=== PATIENT | female | born 1980 | race Caucasian/White ===

== ENCOUNTER 2024-07-10 07:15 | Outpatient (CLI) | payer MEDICAID, SELFPAY ==
[2024-07-10 08:10] VITALS: BP 139/82; PULSE 112; RESP 16; TEMP 36.6; O2SAT 97
[2024-07-10 08:16] VITALS: BMI 46.3
== END 2024-07-10 08:40 | disposition home or self-care (01) ==
LOC: WPOUT 07:27 → WP 07:43
PROVIDERS: Referring Provider Advanced Practice Midwife; Visit Provider Advanced Practice Midwife
DX: Z34.90 Encounter for supervision of normal pregnancy, unspecified, unspecified trimester (principal); Z3A.00 Weeks of gestation of pregnancy not specified
CPT/HCPCS: 59025; 59050 ×2; G0378 ×2; 99221

== ENCOUNTER 2024-07-12 07:25 | Inpatient (IN) | payer MEDICAID, SELFPAY ==
[2024-07-12] VITALS (85 sets, daily range): BP systolic 84–168; BP diastolic 50–101; PULSE 75–127; RESP 14–18; TEMP 36.1–36.9; O2SAT 82–100; BMI 46.3
[2024-07-12] MEDS: Lactated Ringers 1,000 ML 50 ML IV (08:00)
[2024-07-12 08:15] LABS: Hematocrit 34.2 % (37-47); Hemoglobin 11.5 g/dL (12.0-15.0); Mean Corp Hgb Conc 33.6 g/dL (32-36); Mean Corpuscular Volume 86.1 fL (81-99); Platelet Count 292 K/mm3 (150-450); RBC Distribution Width CV 14.6 % (11.6-14.6); RBC Distribution Width SD 45.3 fl (35.1-43.9); Red Blood Count 3.97 M/mm3 (4.2-5.4); White Blood Count 7.7 K/mm3 (4.4-11.0)
[2024-07-12 08:46] LABS: AST(SGOT) 9 U/L (15-37); Alanine Aminotransfer ALT/SGPT 9 U/L (13-56); Creatinine, Serum 0.72 mg/dL (0.55-1.02); EST Glomerular Filtration Rate 95 mL/min (>60); Est Glom Filt Rate - Afr Amer 115 mL/min (>60); Estimated Creatinine Clearance 147.25 ml/min; Uric Acid 5.8 mg/dL (2.6-6.0)
[2024-07-12 09:02] LABS: Syphilis Antibodies Non-reactive
--- NOTE | 2024-07-12 09:22 | PCM.HP.OB ---
HPI - General General Date of Admission: 07/12/24 HPI Narrative RUSTY IRVIN, is a 43 F who presents 0 1 10 39w5d with MORIAH:07/14/24. Presents for medically indicated induction of labor due to obesity, polyhydramnios, and AMA. Maternal Data Information MORIAH Calculator Estimated Delivery Date Method Current WG Current Estimate 07/14/24 Manual 39w 5d PFSH PFSH Medical History (Updated 07/12/24 @ 10:26 by Elidia Taylor CNM) Polyhydramnios macrosomia Home Medications ?Medication ?Instructions ?Recorded ?Last Taken ?Type aspirin 81 mg capsule 81 mg PO DAILY AMA 07/10/24 07/09/24 History vit no.95-ferrous 1 tab PO DAILY 07/10/24 07/09/24 History fumarate 28 mg-folic acid 800 mcg tablet () Allergy/AdvReac Type Severity Reaction Status Date / Time No Known Allergies Allergy Verified 07/12/24 08:17 Social History Smoking Status: Never smoker History Elective abortions Hx Para 10 Spontaneous abortions Hx # Term Pregnancies Ectopic pregnancies Hx # Pregnancies Multiple births # of living children NST FHR Rate Baby A Baseline: 145 Variability:: Moderate Accelerations:: 15 x 15 Decelerations:: Variable FHR Category:: Category I and Category II Uterine Activity:: Irregular, mild ROS Constitutional Constitutional: Reports systems reviewed and no addt'l complaints, except as documented; Denies headache(s) Eyes Eyes: Denies acute decrease in peripheral vision, blurry vision or change in vision ENT HEENT: Reports systems reviewed and no addt'l complaints, except as documented Cardiovascular Cardiovascular: Denies chest pain or dizziness Respiratory/Chest Respiratory/Chest: Denies cough, dyspnea, dyspnea on exertion, shortness of breath at rest or shortness of breath with exertion Gastrointestinal Gastrointestinal: Denies abdominal pain, diarrhea, nausea or vomiting Genitourinary Genitourinary: Denies abdominal discomfort Musculoskeletal Musculoskeletal: Denies limited range of motion Integumentary Integumentary: Reports systems reviewed and no addt'l complaints, except as documented Neurologic Neurologic: Reports systems reviewed and no addt'l complaints, except as documented Psychiatric Psychiatric: Reports systems reviewed and no addt'l complaints, except as documented Endocrine Endocrinology: Reports systems reviewed and no addt'l complaints, except as documented Hematologic/Lymphatic Hematologic/Lymphatic: Reports systems reviewed and no addt'l complaints, except as documented Allergic/Immunologic Allergic/Immunologic: Reports systems reviewed and no addt'l complaints, except as documented Vital Signs Vital Signs Vital Signs: 07/12/24 07:47 07/12/24 07:47 07/12/24 07:47 Temperature Temperature Source Temporal Pulse Rate Respiratory Rate 17 Blood Pressure BP Systolic BP Diastolic Pulse Ox 98 07/12/24 07:47 07/12/24 07:48 07/12/24 07:48 Temperature 97.2 F L Temperature Source Pulse Rate 117 H Respiratory Rate Blood Pressure 168/101 H BP Systolic 168 BP Diastolic 101 Pulse Ox 07/12/24 07:50 07/12/24 07:50 07/12/24 07:50 Temperature Temperature Source Pulse Rate 120 H 125 H Respiratory Rate Blood Pressure 165/79 H BP Systolic 165 BP Diastolic 79 Pulse Ox 07/12/24 07:50 07/12/24 07:51 07/12/24 07:51 Temperature Temperature Source Pulse Rate 120 H Respiratory Rate Blood Pressure 161/71 H BP Systolic 161 BP Diastolic 71 Pulse Ox 97 07/12/24 07:55 07/12/24 07:55 07/12/24 07:57 Temperature Temperature Source Pulse Rate 122 H 127 H Respiratory Rate Blood Pressure BP Systolic BP Diastolic Pulse Ox 99 07/12/24 07:57 07/12/24 08:00 07/12/24 08:00 Temperature Temperature Source Pulse Rate 121 H Respiratory Rate Blood Pressure BP Systolic BP Diastolic Pulse Ox 82 99 07/12/24 08:04 07/12/24 08:04 07/12/24 08:05 Temperature Temperature Source Pulse Rate 118 H 118 H Respiratory Rate Blood Pressure BP Systolic BP Diastolic Pulse Ox 93 07/12/24 08:05 07/12/24 08:07 07/12/24 08:07 Temperature Temperature Source Pulse Rate 114 H Respiratory Rate Blood Pressure 157/73 H BP Systolic 157 BP Diastolic 73 Pulse Ox 93 07/12/24 08:07 07/12/24 08:07 07/12/24 08:07 Temperature 98.5 F Temperature Source Temporal Pulse Rate Respiratory Rate 18 Blood Pressure BP Systolic BP Diastolic Pulse Ox 07/12/24 08:10 07/12/24 08:10 07/12/24 08:15 Temperature Temperature Source Pulse Rate 115 H 119 H Respiratory Rate Blood Pressure BP Systolic BP Diastolic Pulse Ox 93 07/12/24 08:15 07/12/24 08:20 07/12/24 08:20 Temperature Temperature Source Pulse Rate 120 H Respiratory Rate Blood Pressure BP Systolic BP Diastolic Pulse Ox 99 98 07/12/24 08:22 07/12/24 08:22 07/12/24 08:25 Temperature Temperature Source Pulse Rate 114 H 121 H Respiratory Rate Blood Pressure 138/78 H BP Systolic 138 BP Diastolic 78 Pulse Ox 07/12/24 08:25 07/12/24 08:30 07/12/24 08:30 Temperature Temperature Source Pulse Rate 112 H Respiratory Rate Blood Pressure BP Systolic BP Diastolic Pulse Ox 99 98 07/12/24 08:35 07/12/24 08:35 07/12/24 08:37 Temperature Temperature Source Pulse Rate 102 H Respiratory Rate Blood Pressure 151/75 H BP Systolic 151 BP Diastolic 75 Pulse Ox 100 07/12/24 08:37 07/12/24 08:40 07/12/24 08:40 Temperature Temperature Source Pulse Rate 101 H 112 H Respiratory Rate Blood Pressure BP Systolic BP Diastolic Pulse Ox 99 07/12/24 08:45 07/12/24 08:45 07/12/24 08:50 Temperature Temperature Source Pulse Rate 100 103 H Respiratory Rate Blood Pressure BP Systolic BP Diastolic Pulse Ox 99 07/12/24 08:50 07/12/24 08:52 07/12/24 08:52 Temperature Temperature Source Pulse Rate 103 H Respiratory Rate Blood Pressure BP Systolic BP Diastolic Pulse Ox 100 85 07/12/24 08:53 07/12/24 08:53 07/12/24 09:07 Temperature Temperature Source Pulse Rate 100 Respiratory Rate Blood Pressure 158/91 H 148/82 H BP Systolic 158 148 BP Diastolic 91 82 Pulse Ox 07/12/24 09:07 Temperature Temperature Source Pulse Rate 99 Respiratory Rate Blood Pressure BP Systolic BP Diastolic Pulse Ox Weight Weight: 296 lb 4 oz Body Mass Index (BMI) 46.3 Physical Exam Const alert and oriented x3 General Appearance: cooperative Orientation / Consciousness: awake, oriented to person, oriented to place and oriented to time Exam Limitations: no limitations HEENT normocephalic Head and Scalp: normal to inspection, normocephalic and atraumatic Face and Sinus: normal facial exam Eyes General Eye: normal appearance of both eyes Neck full ROM Chest Chest: symmetrical chest wall rise Resp normal respiratory effort and normal air movement Auscultation: clear to auscultation bilaterally Cardio regular rate, regular rhythm, S1 normal heart sound, S2 normal heart sound, no murmurs, no rub, no gallops and no clicks GI normal to inspection, nondistended, normoactive bowel sounds and non-tender appearance of the vagina normal Bladder / Kidney Exam: no CVA tenderness Manual OB Exam: estimated gestational size appropriate, presentation cephalic, dilated 5, effaced 60, station -2 and other AROM large amount of clear fluid Back/Spine normal ROM Extremity normal to inspection and full ROM Skin no rashes or lesions noted Neuro oriented x3, CN's II-XII intact bilaterally and moves all extremities Sensorium / Orientation: awake, alert and oriented to person Motor Exam: clonus absent Deep Tendon Reflexes: Rt Patellar (L4): 2+ and Lt Patellar (L4): 2+ Labs Labs Labs: Blood Type O NEGATIVE Antibody Screen NEGATIVE Hct 34.2 % (37-47) L Hgb 11.5 g/dL (12.0-15.0) L Syphilis Total Ab Non-reactive RPR nonreactive Rubella Positive HBsAG Negative HepC Negative HIV non reactive GC/CT negative O Negative 08/22/24 GBS positive Assessment & Plan (1) Gestational hypertension: COMMENT: high blood pressures on admission. Preeclampsia labs sent on admission. (2) Obesity affecting : (3) Encounter for induction of labor: (4) Rh negative state in antepartum period: COMMENT: Rhogam given 08/22/24 (5) History of macrosomia in infant in prior , currently : COMMENT: Largest baby 10lb 14oz (6) Grand multipara in labor: COMMENT: 0 1 10 PLAN: Plan 1) Admit to labor and delivery 2) Routine labs 3) BP elevated, no severe range. Preeclampsia lab panel drawn. 4) Continuous EFM 5) AROM and pitocin 6) PCN prophylaxis for positive GBS 7) Planning epidural for pain management 8) located within [facility] physician and notified of patient above assessment and plan. 9) Decline LARC
[2024-07-12] MEDS: Penicillin G Pot 5,000,000 UNITS in 0.9% Normal Saline (100mL MB+) 100 ML 150 UNITS IV (09:24)
[2024-07-12] MEDS: Oxytocin 15 Units/NS 250ml 15 UNITS/250 ML IV.SOLN 2 UNITS IV (09:25)
[2024-07-12] MEDS: Lactated Ringers 1,000 ML 999 ML IV (09:55)
[2024-07-12 10:19] LABS: Protein, Urine (Random) 30.5 mg/dL (<11.9); Protein:Creat Ratio 203 mg/g CRE (0-200)
[2024-07-12] MEDS: fentaNYL-bupivacaine (epidural) 100 ML BAG EPIDURAL (11:00)
[2024-07-12] MEDS: Ondansetron 4 MG/2 ML Vial IV (12:24)
[2024-07-12] MEDS: Lactated Ringers 1,000 ML 200 ML IV (12:48)
[2024-07-12] MEDS: Penicillin G 3,000,000 Units 50 ML 100 UNITS IV (13:34)
[2024-07-12] MEDS: Acetaminophen 500 MG Tablet PO (13:34)
--- NOTE | 2024-07-12 16:27 | EX.PCM.OBRPT ---
Assessment & Plan (1) Rh negative state in antepartum period: COMMENT: Rhogam given 08/22/24 (2) Gestational hypertension: COMMENT: high blood pressures on admission. Preeclampsia labs sent on admission. (3) Vaginal delivery: (4) First degree perineal laceration: (5) Lactating mother: Maternal Data Information MORIAH Calculator Estimated Delivery Date Method Current WG Current Estimate 07/14/24 Manual 39w 5d Vaginal Delivery Maternal Presentation Maternal Presentation: Medically Indicated Induction Type of Induction: Pitocin and Amniotomy Operative Information Date of Procedure: 07/12/24 Pre-Operative Diagnosis: Induction of labor for obesity, AMA, and Polyhydramnios Post-Operative Diagnosis: , first degree perineal laceration Surgery / Procedure Performed: Spontaneous Vaginal Delivery Type of Anesthesia: Epidural Estimated Blood Loss: 400 ml Time of Delivery: 16:01 Findings Description of Procedure: Progressed to complete with urge to push. Epidural for pain management. of viable female over first degree perineal laceration. APGARS 8,9 respectively. head delivered with body immediately forthcoming. Placed on maternal abdomen, strong cry. Mouth and nares suctioned for secretions. Pitocin started for active 3rd stage management. Cord doubly clamped and cut by FOB after pulsations ceased, delayed cord clamping. Placenta delivered intact via carreno, 3 vessel cord intact. Perineum inspected and revealed 1st degree perineal laceration. Repaired with 3.0 vicryl rapide and lidocaine. Fundus firm and hemostasis achieved. EBL 400ml. Mom and baby stable, planning to breastfeed. Family bonding well. notified of delivery. Presentation: Vertex and MARÍA ELENA Amniotic Membrane Rupture Type: Artificial Amniotic Fluid Description: Clear Placental Delivery Description: Spontaneous Placenta Disposition: [facility] Cord Vessel Description: 3 Vessels Cord Entanglement: None A Gender: Female (1 minute): 8 (5 minute): 9 Delayed Cord Clamping: Yes Post Vaginal Delivery Medications Given After Delivery: IV Pitocin Episiotomy Description: None Laceration: Perineal Extension/lac and 1st degree Complication Complications: None
[2024-07-12] MEDS: Oxytocin 15 Units/NS 250ml 15 UNITS/250 ML IV.SOLN 83 UNITS IV (16:48)
[2024-07-12] MEDS: Methylergonovine 0.2 MG/ML Ampul IM (17:08)
--- NOTE | 2024-07-12 17:33 | OB.TRI.NOTE ---
HPI - General General Date of Admission: 07/10/24 Date of Service: 07/10/24 HPI Narrative RUSTY IRVIN, is a 43 F who presents at 39w4d for induction of labor. Maternal Data Information MORIAH Calculator Estimated Delivery Date Method Current WG Current Estimate 07/14/24 Manual 39w 5d PFSH [facility] Medical History (Updated 07/12/24 @ 17:34 by Elidia Taylor CNM) Polyhydramnios macrosomia Home Medications ?Medication ?Instructions ?Recorded ?Last Taken ?Type aspirin 81 mg capsule 81 mg PO DAILY AMA 07/10/24 07/09/24 History vit no.95-ferrous 1 tab PO DAILY 07/10/24 07/09/24 History fumarate 28 mg-folic acid 800 mcg tablet () Allergy/AdvReac Type Severity Reaction Status Date / Time No Known Allergies Allergy Verified 07/12/24 08:17 Social History Smoking Status: Never smoker History Elective abortions Hx Para 10 Spontaneous abortions Hx # Term Pregnancies Ectopic pregnancies Hx # Pregnancies Multiple births # of living children NST FHR Rate Baby A Baseline: 145 Variability:: Moderate Accelerations:: 15 x 15 Decelerations:: None NST Reactive:: Yes Uterine Activity:: None Assessment & Plan (1) 39 weeks gestation of : (2) Polyhydramnios: PLAN: Plan 1) NST reactive 2) Unable to start induction of labor due to L&D staffing. D/C home and will call to plan for induction of labor date.
[2024-07-12] MEDS: Ibuprofen 600 MG Tablet PO (18:26)
[2024-07-12] MEDS: 0.9% Saline Lock 10 ML Syringe IV (20:16)
[2024-07-13 00:32] VITALS: BP 114/88; PULSE 96; RESP 16; TEMP 36.5; O2SAT 98
[2024-07-13] MEDS: Rho(D) Immune Globulin 300 MCG (1500 Unit) Syringe IV (00:36)
[2024-07-13] MEDS: Acetaminophen 500 MG Tablet 1000 MG PO ×2 (00:47→11:29)
[2024-07-13 05:10] VITALS: BP 125/80; PULSE 88; RESP 16; TEMP 35.9; O2SAT 98
[2024-07-13 05:33] LABS: Absolute Lymphocyte Count 1.58 X10^3/uL (0.83-4.51); Absolute Neutrophil Count 7.5 X10^3/uL (2.0-7.7); Basophil# 0.03 X10^3/uL; Basophil% 0.3 % (0-1); Eosinophil# 0.12 X10^3/uL; Eosinophils% 1.2 % (0-5); Hematocrit 28.1 % (37-47); Hemoglobin 9.5 g/dL (12.0-15.0); Lymphocyte # 1.58 X10^3/ul (0.83-4.51); Lymphocyte % 15.7 % (19-41); Mean Corp Hgb Conc 33.8 g/dL (32-36); Mean Corpuscular Hgb 29.5 pg (27.0-32.0); Mean Corpuscular Volume 87.3 fL (81-99); Mean Platelet Vol. 10.2 fl (6.2-12.0); Monocyte% 7.9 % (0-10); NRBC Flagged by Analyzer 0 % (0-5); Neutrophil % 74.5 % (47-70); Platelet Count 273 K/mm3 (150-450); RBC Distribution Width CV 14.6 % (11.6-14.6); RBC Distribution Width SD 46.3 fl (35.1-43.9); Red Blood Count 3.22 M/mm3 (4.2-5.4); White Blood Count 10.1 K/mm3 (4.4-11.0)
[2024-07-13 07:58] VITALS: BP 125/77; PULSE 90; RESP 16; TEMP 36.1; O2SAT 99
--- NOTE | 2024-07-13 08:39 | PCM.PN.OB ---
Subjective Subjective pt doing well. No WALTON, vision changes, CP, SOB, leg pain. Ambulating and voiding without difficulty. Lochia normal. Adin diet without N/V. offers no complaints and desires discharge today. Objective Data Objective Data Vital Signs: Vital Signs Temp Pulse Resp BP Pulse Ox O2 Del Method 96.9 F L 90 16 125/77 H 99 Room Air 07/13/24 07:58 07/13/24 07:58 07/13/24 07:58 07/13/24 07:58 07/13/24 07:58 07/13/24 07:58 Oxygen Delivery Method Room Air Weight: 296 lb 4 oz Body Mass Index (BMI) 46.3 Intake & Output: Intake and Output for Last 24 Hours 07/11/24 07/12/24 07/13/24 23:59 23:59 23:59 Intake Total 2837.50 / 2837.50 Output Total 1888 / 1888 200 / 200 Balance 949.50 / 949.50 -200 / -200 Lab / Micro Data 07/13/24 05:15 07/12/24 08:00 Labs: Laboratory Results - last 24 hr 07/12/24 08:00: Creatinine 0.72, Estim Creat Clear Calc 147.25, Est GFR (MDRD) Af Amer 115, Est GFR (MDRD) Non-Af 95, Uric Acid 5.8, AST 9 L, ALT 9 L, Syphilis Total Ab Non-reactive, Blood Type O NEGATIVE, Antibody Screen NEGATIVE 07/12/24 09:45: U Random Total Protein 30.5 H, Urine Creatinine 150.00, Protein/Creatinin Ratio 203 H 07/12/24 19:30: Screen TNP, Baby's Blood Type O POSITIVE, Baby's HE NEGATIVE 07/13/24 05:15: WBC 10.1, RBC 3.22 L, Hgb 9.5 L, Hct 28.1 L, MCV 87.3, MCH 29.5, MCHC 33.8, RDW Std Deviation 46.3 H, RDW Coeff of Sandy 14.6, Plt Count 273, MPV 10.2, Immature Gran % (Auto) 0.400, Neut % (Auto) 74.5 H, Lymph % (Auto) 15.7 L, Dupage % (Auto) 7.9, Eos % (Auto) 1.2, Baso % (Auto) 0.3, Absolute Neuts (auto) 7.5, Absolute Lymphs (auto) 1.58, Nucleated RBC % 0 Physical Exam Const alert and no apparent distress General Appearance: comfortable HEENT normocephalic Resp normal respiratory effort GI soft to palpation, non-tender and non-distended Extremity no calf tenderness Assessment & Plan (1) First degree perineal laceration: (2) Vaginal delivery: PLAN: PPD#1 s/p . Doing well and desires discharge. D/C instructions reviewed. (3) Gestational hypertension: COMMENT: high blood pressures on admission. Preeclampsia labs sent on admission. PLAN: BP has been normal and no symptoms of pre e. Follow up for BP check.
--- NOTE | 2024-07-13 08:42 | DCINST_ITS ---
Discharge Instructions Diet Discharge Diet: No restrictions Activity Discharge Activity: May Drive and May Shower May resume sexual activity in: 6 weeks Ice area for (Minutes): 15 Weight Bearing Status: Weight bearing as tolerated Lifting Restrictions: nothing heavier than baby Dressing / Incision Call your doctor if your incision/area has: Continuous Slow Oozing, Sudden Increased Bleeding, Increased Pain/ Swelling, Increased Redness, Foul Smelling Discharge and Swelling at the incision site Call your doctor if you observe: Fever of 101 or Higher, Coldness, Increased Pain, Numbness or Tingling, Change in Color, Inability to urinate, Inability to have a bowel movement, Shortness of breath, Dizziness, Fainting spells, Swelling in the ankles, Chest pain, Prolonged hiccupping, Increased palpitations (irregular heartbeat), Calf discomfort, Uncontrolled pain and - (severe headache that will no go away with pain medication, vision changes, RUQ pain, vomiting) Cleanse incision/area with: Soap & Water Follow Up Care Please Follow Up With: Elidia Taylor CNM When: This week for a blood pressure check 6 week exam Test Results: Test results from this visit will be discussed in further detail at your follow- up appointment, if applicable. Discharge Plan Admission Admit Date/Time: 07/12/24 07:25 Primary Reason for Your Visit: Delivery Attending Provider: Elidia Taylor Primary Care Provider: MER HUDDLESTON Instructions Patient Instructions: After a Vaginal Discharge Orders/Prescriptions Prescriptions: Continued PNV cmb#95-ferrous fumarate-FA [] 28 mg iron- 800 mcg tablet 1 tab PO DAILY Discontinued aspirin 81 mg capsule 81 mg PO DAILY Referrals / Follow Up: MER HUDDLESTON [Other] Disposition Disposition (needs filled in before D/C Order can be placed): Home, Self Care
[2024-07-13] MEDS: Ibuprofen 600 MG Tablet PO ×2 (09:32→15:41)
[2024-07-13 12:42] VITALS: BP 139/73; PULSE 92; RESP 16; TEMP 36.2; O2SAT 98
[2024-07-13 16:41] VITALS: BP 131/68; PULSE 90; RESP 15; TEMP 36.2; O2SAT 98
--- NOTE | 2024-08-11 09:34 | PCM.DC.SUM ---
Providers Date of Admission: 07/12/24 Date of Discharge: 07/13/24 Primary Care Physician: MER HUDDLESTON Reason For Visit: VAGINAL DELIVERY Diagnosis Discharge Diagnosis (1) First degree perineal laceration: Status: Acute Code(s): O70.0 - First degree perineal laceration during delivery (2) Vaginal delivery: Status: Acute Code(s): O80 - Encounter for full-term uncomplicated delivery Plan: PPD#1 s/p . Doing well and desires discharge. D/C instructions reviewed. (3) Gestational hypertension: Status: Inactive Code(s): O13.9 - Gestational [-induced] hypertension without significant proteinuria, unspecified trimester Plan: BP has been normal and no symptoms of pre e. Follow up for BP check. Medications at Discharge Home Medications vit no.95-ferrous fumarate 28 mg-folic acid 800 mcg tablet () 1 tab PO DAILY 07/10/24 Hospital Course Operations None Procedures None Summary of Care Provided Minutes Spent on Discharge: 10 Hospital Course: The patient was admitted for a medically indicated induction for obesity, gHTN, polyhydramnios, AMA. She had a vaginal delivery. See operative report for details. She was discharged home in good condition on day 1 with follow up in office. Weight / BMI Weight Weight: 296 lb 4 oz Body Mass Index (BMI) 46.3 ABG / Lab / Microbiology Data 07/13/24 05:15 07/12/24 08:00 D/C Instructions Discharge Diet: No restrictions May resume sexual activity in: 6 weeks Ice area for (Minutes): 15 Weight Bearing Status: Weight bearing as tolerated Call your doctor if your incision/area has: Continuous Slow Oozing, Sudden Increased Bleeding, Increased Pain/ Swelling, Increased Redness, Foul Smelling Discharge and Swelling at the incision site Call your doctor if you observe: Fever of 101 or Higher, Coldness, Increased Pain, Numbness or Tingling, Change in Color, Inability to urinate, Inability to have a bowel movement, Shortness of breath, Dizziness, Fainting spells, Swelling in the ankles, Chest pain, Prolonged hiccupping, Increased palpitations (irregular heartbeat), Calf discomfort, Uncontrolled pain and - (severe headache that will no go away with pain medication, vision changes, RUQ pain, vomiting) Cleanse incision/area with: Soap & Water Please Follow Up With: Elidia Taylor CNM When: This week for a blood pressure check 6 week exam Meaningful Use Info Meaningful Use Meaningful Use Diagnoses (Choose all that apply): None applicable Ischemic Stroke Statin Dosing Therapy Reference: STATIN DOSE THERAPY REFERENCE: * Patients > 75 years receive moderate or high dose statin therapy. * Patients 75 years or YOUNGER should receive HIGH intensity statin dose unless contraindicated. You will be required to document reason for non-treatment if statin daily dose does not meet guidelines. HIGH DOSE STATIN THERAPY DAILY Atorvastatin > than or = to 40 mg Rosuvastatin > than or = to 20 mg Amlodipine + Atorvastatin > than or = to 2.5/40 mg Ezetimibe + Simvastatin 10/80 mg Simvastatin 80mg Discharge Plan Admission Admit Date/Time: 07/12/24 07:25 Primary Reason for Your Visit: Delivery Attending Provider: Elidia Taylor Primary Care Provider: MER HUDDLESTON Instructions Patient Instructions: After a Vaginal Discharge Orders/Prescriptions Prescriptions: Continued PNV cmb#95-ferrous fumarate-FA [] 28 mg iron- 800 mcg tablet 1 tab PO DAILY Discontinued aspirin 81 mg capsule 81 mg PO DAILY Referrals / Follow Up: MER HUDDLESTON [Other] Disposition Disposition (needs filled in before D/C Order can be placed): Home, Self Care
== END 2024-07-13 17:35 | disposition home or self-care (01) | DRG 560 ==
PROVIDERS: Admitting Provider Advanced Practice Midwife; Referring Provider Advanced Practice Midwife; Visit Provider Advanced Practice Midwife
DX: O40.3XX0 Polyhydramnios, third trimester, not applicable or unspecified (principal); Z37.0 Single live birth; O26.23 Pregnancy care for patient with recurrent pregnancy loss, third trimester; O13.4 Gestational [pregnancy-induced] hypertension without significant proteinuria, complicating childbirth; O99.214 Obesity complicating childbirth; O70.0 First degree perineal laceration during delivery; Z79.82 Long term (current) use of aspirin; Z3A.39 39 weeks gestation of pregnancy
CPT/HCPCS: 59025; 59050; 82565; 82570; 84156; 84450; 84460; 84550; 85025; 85027; 85461; 86780; 86850; 86900; 86901; 90384; 99221; J7120; A4216; G0378; J2405; J2790; J2791